=== PATIENT | male | born 1980 | race Caucasian/White ===

== ENCOUNTER 2023-02-11 11:48 | Emergency (ER) | payer MEDICAID, OTHER | END 2023-02-11 12:39 | disposition left against medical advice (07) | LOC: ER 11:48 | DX: R07.81 Pleurodynia (principal); Z53.21 Procedure and treatment not carried out due to patient leaving prior to being seen by health care provider ==

== ENCOUNTER 2023-02-11 15:02 | Emergency (ER) | payer MEDICAID ==
[~2023-02-11] VITALS: Ht 175.3 cm; Wt 114.5 kg
[2023-02-11 15:09] VITALS: BP 136/82; PULSE 100; RESP 18; TEMP 98.1; O2SAT 97
== END 2023-02-11 16:12 | disposition home or self-care (01) ==
LOC: ER 15:02
DX: S29.011A Strain of muscle and tendon of front wall of thorax, initial encounter (principal); S23.41XA Sprain of ribs, initial encounter; X50.0XXA Overexertion from strenuous movement or load, initial encounter; Y93.89 Activity, other specified; Y92.89 Other specified places as the place of occurrence of the external cause; Y99.8 Other external cause status
CPT/HCPCS: 71101